=== PATIENT | male | born 1990 | race Two or more races ===

== ENCOUNTER 2023-07-18 14:20 | Emergency (ER) | payer OTHER ==
[~2023-07-18] VITALS: Ht 172.7 cm; Wt 56.7 kg
[2023-07-18] MEDS ORDERED: CYCLOBENZAPRINE 10 MG TABLET ONE (15:14)
[2023-07-18] MEDS ORDERED: IBUPROFEN 600 MG TABLET ONE (15:14)
[2023-07-18] MEDS ORDERED: ACETAMINOPHEN ES 500 MG TABLET ONE (15:14)
[2023-07-18] MEDS ORDERED: ACETAMINOPHEN ES 500 MG TABLET PO ONE (15:30)
[2023-07-18] MEDS ORDERED: CYCLOBENZAPRINE 10 MG TABLET PO ONE (15:30)
[2023-07-18] MEDS ORDERED: IBUPROFEN 600 MG TABLET PO ONE (15:30)
[2023-07-18 16:01] VITALS: BP 139/94; TEMP 98.1; O2SAT 0
[2023-07-18] MEDS ORDERED: CYCL5TAB PO (16:29)
[2023-07-18] MEDS ORDERED: KETO10TA2 PO (16:29)
== END 2023-07-18 16:37 | disposition home or self-care (01) ==
LOC: ER 14:28
DX: M79.641 Pain in right hand (principal); M25.531 Pain in right wrist; Z79.899 Other long term (current) drug therapy; Z60.2 Problems related to living alone; V89.2XXA Person injured in unspecified motor-vehicle accident, traffic, initial encounter; Y93.89 Activity, other specified; Y92.89 Other specified places as the place of occurrence of the external cause; Y99.8 Other external cause status
CPT/HCPCS: 73110; 73130-TC